=== PATIENT | male | born 1940 | race Caucasian/White ===

== ENCOUNTER 2018-07-16 06:23 | Day surgery (SDC) | payer OTHER ==
[2018-07-15 12:04] LABS: BASOPHILS % (AUTO) 0.8 % (0.0-5.0); EOSINOPHILS % (AUTO) 0.9 % (0.0-8.0); HEMATOCRIT 44.1 % (42-54); LYMPHOCYTES % (AUTO) 17.5 % (21.0-51.0); MEAN CORPUSCULAR HEMOGLOBIN 35.8 pg (27.0-33.0); MEAN CORPUSCULAR HGB CONC 33.3 g/dL (32.0-36.0); MEAN CORPUSCULAR VOLUME 107.7 fL (79-99); MONOCYTES % (AUTO) 38.7 % (3.0-13.0); NEUTROPHILS % (AUTO) 42.1 % (40.0-77.0); NUCLEATED RED BLOOD CELLS 0.1 % (0.0-0.19); PLATELET COUNT (AUTO) 218 K/uL (130-400); RED BLOOD CELL COUNT(AUTO) 4.09 MIL/uL (4.50-6.20); RED CELL DISTRIBUTION WIDTH 14.5 % (11.0-15.5); WHITE BLOOD COUNT (AUTO) 6.3 K/uL (4.8-10.8)
[2018-07-15 12:14] LABS: APPEARANCE,URINE Clear (CLEAR); BILIRUBIN,URINE Negative (NEGATIVE); COLOR,URINE Yellow (YELLOW); GLUCOSE, URINE (UA) Negative (NEGATIVE); KETONES,URINE Negative (NEGATIVE); LEUKOCYTE ESTERASE ,URINE Negative (NEGATIVE); NITRATE,URINE Negative (NEGATIVE); OCCULT BLOOD,URINE Moderate (NEGATIVE); PROTEIN,URINE Negative (NEGATIVE)
[2018-07-15 12:17] LABS: INR 1.07 (0.85-1.15); PARTIAL THROMBOPLASTIN TIME 29.5 SEC (26.3-35.5); PROTHROMBIN TIME 11.2 SEC (9.6-11.6)
[2018-07-15 12:32] LABS: ALBUMIN 3.8 g/dL (3.5-5.0); BILIRUBIN,TOTAL 0.5 mg/dL (0.2-1.0); POTASSIUM 4.5 mmol/L (3.5-5.1); TOTAL PROTEIN, SERUM 6.6 g/dL (6.0-8.3)
[2018-07-15 12:52] VITALS: BP 119/69
[~2018-07-16] VITALS: Ht 180.3 cm; Wt 71.8 kg
[2018-07-16] VITALS (19 sets, daily range): BP systolic 114–133; BP diastolic 67–84
[2018-07-16] MEDS: CEFAZOLIN SODIUM 1 GM VIAL IVP SCH ×2 (06:00→07:50)
[~2018-07-16 06:23] MED LIST: ASPI-555 PO; BUPR-87 PO; CYAN100099 PO; FINA5TAB41 PO; FOLI0.8C PO; HYDR500C2 PO; LOSA50TA64 PO; MORP30TA71 PO; OMEP20CA10 PO; OXYB5TAB10 PO; SENN25TA PO; TAMS0.4C32 PO
[2018-07-16] MEDS ORDERED: LACTATED RINGERS 1000ML 1,000 ML IV ONE (06:53)
[2018-07-16] MEDS ORDERED: MIDAZOLAM HCL 1 MG/ML 2ML VIAL ONE (07:22)
[2018-07-16] MEDS ORDERED: FENTANYL CITRATE PF 50 MCG/1 ML 2ML VIAL ONE ×2 (07:26→09:11)
[2018-07-16] MEDS ORDERED: PROPOFOL 10 MG/ML 20ML VIAL IV ONE (07:27)
[2018-07-16] MEDS ORDERED: ROCURONIUM 10MG/1ML SYR 10 MG/ML ML ONE (07:27)
[2018-07-16] MEDS ORDERED: LIDOCAINE HCL MPF 1% 5ML VIAL ONE (07:28)
[2018-07-16] MEDS ORDERED: PHENYLEPHRINE HCL 10 MG/ML 1ML VIAL IV ONE (07:50)
[2018-07-16] MEDS ORDERED: EPHEDRINE SULFATE 50 MG/ML AMPULE ONE (08:10)
[2018-07-16] MEDS ORDERED: ONDANSETRON HCL 4 MG/2 ML VIAL ONE (08:13)
[2018-07-16] MEDS ORDERED: DEXAMETHASONE SOD PHOSPHATE 10MG/ML 1ML VIAL ONE (08:13)
[2018-07-16] MEDS ORDERED: GLYCOPYRROLATE 1 MG/5 ML SYRINGE ONE (08:14)
[2018-07-16] MEDS ORDERED: NEOSTIGMINE 5MG/5ML SYR IV ONE (08:14)
[2018-07-16] MEDS ORDERED: KETOROLAC TROMETHAMINE 30MG/ML ONE ×2 (08:59→09:03)
[2018-07-16] MEDS ORDERED: MEPERIDINE-PF 25 MG/ML SYG ONE (09:49)
[2018-07-16] MEDS ORDERED: IPRATROPIUM/ALBUTEROL SULFATE 3 ML SOLUTION IH ONE (10:43)
--- NOTE | 2018-07-16 10:56 | NUR ---
RESPIRATORY THERAPIST TO SEE PT, PROVIDED CYNTHIA HAWK AND EXPLAINED THE I.S. TO PT. PT VERBALIZED UNDERSTANDING. Addendum: 07/16/18 at 1104 by TILA COLON RN RN Amended: Links added.
== END 2018-07-16 12:30 | disposition home or self-care (01) ==
LOC: DAH 06:23
DX: S63.054A Dislocation of other carpometacarpal joint of right hand, initial encounter (principal); S63.044A Dislocation of carpometacarpal joint of right thumb, initial encounter; X58.XXXA Exposure to other specified factors, initial encounter; Y93.9 Activity, unspecified; Y92.89 Other specified places as the place of occurrence of the external cause; Y99.9 Unspecified external cause status; J44.9 Chronic obstructive pulmonary disease, unspecified; N40.0 Benign prostatic hyperplasia without lower urinary tract symptoms; I10 Essential (primary) hypertension; C92.10 Chronic myeloid leukemia, BCR/ABL-positive, not having achieved remission; M19.031 Primary osteoarthritis, right wrist; F32.9 Major depressive disorder, single episode, unspecified; Z79.899 Other long term (current) drug therapy; Z98.890 Other specified postprocedural states; Z79.01 Long term (current) use of anticoagulants
CPT/HCPCS: 26841; 36415; 76000; 80053; 81003; 85025; 85610; 85730; 88305; 94640; A4218; A4649; A6223; C1713 ×3; J0690; J1100; J1885; J2175; J2250; J2370; J2405; J2704; J2710; J3010 ×2; J3490 ×3; J7120; Q4051

== ENCOUNTER 2018-09-10 06:26 | Day surgery (SDC) | payer OTHER ==
[2018-09-09 11:30] VITALS: BP 138/82
[2018-09-09] MEDS: CEFAZOLIN SODIUM 1 GM VIAL IVP SCH (12:45)
[~2018-09-10] VITALS: Ht 179.1 cm; Wt 69.7 kg
[2018-09-10] VITALS (16 sets, daily range): BP systolic 109–132; BP diastolic 52–78
[~2018-09-10 06:26] MED LIST changes: +ALBUTEROL; -BUPR-87 PO; +BUPR100T13 PO
[2018-09-10] MEDS ORDERED: LACTATED RINGERS 1000ML 1,000 ML IV ONE (07:07)
[2018-09-10 07:08] LABS: BASOPHILS % (AUTO) 0.5 % (0.0-5.0); HEMATOCRIT 40.9 % (42-54); LYMPHOCYTES % (AUTO) 19.4 % (21.0-51.0); MEAN CORPUSCULAR HEMOGLOBIN 34.6 pg (27.0-33.0); MEAN CORPUSCULAR HGB CONC 33.1 g/dL (32.0-36.0); MEAN CORPUSCULAR VOLUME 104.4 fL (79-99); MONOCYTES % (AUTO) 46.7 % (3.0-13.0); NEUTROPHILS % (AUTO) 31.4 % (40.0-77.0); PLATELET COUNT (AUTO) 194 K/uL (130-400); RED BLOOD CELL COUNT(AUTO) 3.92 MIL/uL (4.50-6.20); RED CELL DISTRIBUTION WIDTH 14.4 % (11.0-15.5); WHITE BLOOD COUNT (AUTO) 6.8 K/uL (4.8-10.8)
[2018-09-10] MEDS ORDERED: MIDAZOLAM HCL 1 MG/ML 2ML VIAL ONE (07:24)
[2018-09-10] MEDS ORDERED: PROPOFOL 10 MG/ML 20ML VIAL IV ONE (07:24)
[2018-09-10] MEDS ORDERED: FENTANYL CITRATE PF 50 MCG/1 ML 2ML VIAL ONE (07:25)
[2018-09-10] MEDS ORDERED: SUCCINYLCHOLINE 200MG/10ML SYR ONE (07:28)
[2018-09-10] MEDS ORDERED: LIDOCAINE PF 2% 5ML ABBOJECT ONE (07:29)
[2018-09-10] MEDS: CEFAZOLIN SODIUM 1 GM VIAL IVP SCH (08:48)
[2018-09-10] MEDS ORDERED: EPHEDRINE SULFATE 50 MG/ML AMPULE ONE (08:57)
[2018-09-10] MEDS ORDERED: ONDANSETRON HCL 4 MG/2 ML VIAL ONE (09:17)
[2018-09-10] MEDS ORDERED: LIDOCAINE HCL-MPF 1% 5ML AMP IJ ONE (09:17)
[2018-09-10] MEDS ORDERED: KETOROLAC TROMETHAMINE 30MG/ML ONE (09:17)
[2018-09-10] MEDS ORDERED: DEXAMETHASONE SOD PHOSPHATE 10MG/ML 1ML VIAL ONE (09:18)
--- NOTE | 2018-09-10 10:47 | NUR ---
post op received pt from [facility], s/p right hand pin removal. bulky dressing noted to right h and, neurovascular checks wnl. pt awake and alert , no distress noted, vs stable.
--- NOTE | 2018-09-10 11:10 | NUR ---
dc dc instructions given to pts family friend , instructed on dr. mccauley exact orders. to keep right hand elevated above heart 50% of time, to ambulate at home at least 10x a day, to call pcp to ask what home meds to resume and pain meds if needed. also to take tylenol over the counter for pain, to check temp bid and report temp 100.6 or above, to call answering service [phone] should any problems arise, to keep dressing to right hand dry and intact at all times. to apply ice packs to base of hand, to f/u friday with dr. mccauley. all instructions discuss with patient / pts family friend. verbalized understanding.
--- NOTE | 2018-09-10 11:15 | NUR ---
dc pt dc home via [place], no distress noted. denies any pain or discomforts. right hand dressing dry and intact, accompanied by family friend
== END 2018-09-10 11:15 | disposition home or self-care (01) ==
LOC: DAH 06:26
DX: T84.89XA Other specified complication of internal orthopedic prosthetic devices, implants and grafts, initial encounter (principal); C95.90 Leukemia, unspecified not having achieved remission; J44.9 Chronic obstructive pulmonary disease, unspecified; K21.9 Gastro-esophageal reflux disease without esophagitis; I10 Essential (primary) hypertension; F32.9 Major depressive disorder, single episode, unspecified; Z79.899 Other long term (current) drug therapy; Z98.890 Other specified postprocedural states; M19.90 Unspecified osteoarthritis, unspecified site; G89.29 Other chronic pain; M54.5 Low back pain; N40.1 Benign prostatic hyperplasia with lower urinary tract symptoms; N39.0 Urinary tract infection, site not specified
CPT/HCPCS: 20680; 36415; 73130; 85025; 88300; A4218; A4930; A6223; J0330; J0690; J1100; J1885; J2001; J2250; J2405; J2704; J3010; J3490 ×2; J7120 ×2; Q4050